=== PATIENT | female | born 1940 | race Caucasian/White ===

== ENCOUNTER → 2018-01-29 | Outpatient (CLI) | payer OTHER ==
[~2018-01-29] VITALS: Ht 154.9 cm; Wt 129.2 kg
[~2018-01-29] MED LIST: BENAZEPRIL HCL20 MG PO; CELECOXIB200 MG PO; COLACE100 MG PO; ENDOCET 5-3251 EACH PO; FISH OIL500 MG PO; HYDROCODON-ACE1 EAC7 PO; IBUPROFEN200 M1 PO; IRON325 M1 PO; KLOR-CON 1010 ME1 PO; LASIX40 MG PO; LOVENOX40 MG/0.4 SC; NIACIN100 MG PO; PLEXUS PO; PRILOSEC40 MG PO; RED YEAST RICE600 MG PO; TURMERIC 500 M1 EACH PO; TURMERIC500 MG PO; VITAMIN D35000 UNI1 PO; aloe vera juice
== END | disposition home or self-care (01) ==
LOC: AMB 13:33
PROC: 0DJD8ZZ Inspection of Lower Intestinal Tract, Via Natural or Artificial Opening Endoscopic (ICD-10-PCS; principal; 2018-01-29)
DX: Z12.11 Encounter for screening for malignant neoplasm of colon (principal); K57.30 Diverticulosis of large intestine without perforation or abscess without bleeding; K64.8 Other hemorrhoids; Z86.010 Personal history of colon polyps; Z80.0 Family history of malignant neoplasm of digestive organs; I10 Essential (primary) hypertension; E78.00 Pure hypercholesterolemia, unspecified; E66.9 Obesity, unspecified; Z68.43 Body mass index [BMI] 50.0-59.9, adult; Z87.891 Personal history of nicotine dependence; Z88.5 Allergy status to narcotic agent